=== PATIENT | male | born 1985 | race African-American/Black ===

== ENCOUNTER 2020-07-22 18:49 | Inpatient (IN) | payer SELFPAY ==
[~2020-07-22] VITALS: Ht 170.1 cm; Wt 70.0 kg
[2020-07-22 19:00] VITALS: BP 121/72
[2020-07-22 20:00] VITALS: BP 112/51
[2020-07-22 20:04] LABS: BASO % 0.5 % (0.0-1.0); EOS # 0.3 10*3/uL (0.0-0.4); EOS % 4.6 % (1.0-4.0); HEMATOCRIT 43.4 % (42.0-52.0); LYMPH # 2.3 10*3/uL (1.3-4.4); LYMPH % 37.9 % (27.0-41.0); MEAN CELL VOLUME 86.5 fl (80.0-94.0); MEAN CORPUSCULAR HGB 27.9 pg (27.0-31.0); MEAN CORPUSCULAR HGB CONC 32.3 g/dl (33.0-37.0); MEAN PLATELET VOLUME 10.7 fl (9.6-12.3); MONO # 0.5 10*3/uL (0.1-1.0); NEUT % 48.8 % (47.0-73.0); PLATELET COUNT AUTOMATED 189 10*3/uL (130-400); RED BLOOD COUNT 5.02 10*6/uL (4.50-5.90); RED CELL DISTRI WIDTH 12.8 % (0-14.5); WHITE BLOOD COUNT 6.2 10*3/uL (4.8-10.8)
[2020-07-22 20:19] LABS: ALBUMIN 3.6 gm/dl (3.1-4.5); ALKALINE PHOSPHATASE 85 U/L (45-117); BUN 20 mg/dl (7-24); CHLORIDE 105 mmol/L (98-107); POTASSIUM 3.9 mmol/L (3.5-5.1); SGOT/AST 18 IU/L (3-35); SGPT/ALT 29 U/L (12-78); SODIUM 139 mmol/L (136-145); TOTAL PROTEIN 7.3 gm/dL (6.4-8.2)
[2020-07-22 20:48] LABS: ETHYL ALCOHOL < 3.0 mg/dl (<3)
[2020-07-23] VITALS: BP 136/72
[2020-07-23 05:35] LABS: BILIRUBIN Negative (Negative); BLOOD Negative (Negative); CLARITY Clear (Clear); COLOR Yellow (Yellow); GLUCOSE Negative (Negative); KETONE Negative (Negative); LEUKO ESTERASE Negative (Negative); NITRITE Negative (Negative); PH 7.5 (4.5-8.0); SPECIFIC GRAVITY 1.025 (1.001-1.030)
[2020-07-23 05:43] LABS: URINE AMPHETAMINES < 1000 (1000ng/ml); URINE BARBITURATES < 200 (200ng/ml); URINE BENZODIAZEPINES > 200 (200ng/ml); URINE CANNABINOIDS (THC) < 50 (50ng/ml); URINE COCAINE > 300 (300ng/ml); URINE METHADONE < 300 (300ng/ml); URINE OPIATES < 300 (300ng/ml); URINE PHENCYCLIDINE < 25 (25ng/ml)
[2020-07-23 05:52] LABS: RBC 0-2 rbc/hpf (0-2)
[2020-07-23 08:00] VITALS: BP 115/72
[2020-07-23 12:00] VITALS: BP 114/63
[2020-07-23 16:00] VITALS: BP 138/98
[2020-07-23 20:00] VITALS: BP 115/70
[2020-07-24] VITALS: BP 112/68
[2020-07-24 06:07] LABS: HEP B CORE AB, IGM Negative (Negative); HEPATITIS B SURFACE AG Negative (Negative)
[2020-07-24 08:00] VITALS: BP 126/87
[2020-07-24 12:00] VITALS: BP 134/80
[2020-07-24 16:00] VITALS: BP 118/75
[2020-07-24 20:00] VITALS: BP 104/74
[2020-07-25 00:09] VITALS: BP 106/79
[2020-07-25 08:15] VITALS: BP 116/75
[2020-07-25 12:29] VITALS: BP 106/56
[2020-07-25 16:06] VITALS: BP 137/74
[2020-07-25 20:00] VITALS: BP 116/73
[2020-07-26] VITALS: BP 110/54
[2020-07-26 08:00] VITALS: BP 102/66
[2020-07-26 08:05] LABS: HEPATITIS C VIRUS ANTIBODY >11.0 s/co (0.0-0.9)
[2020-07-26] MEDS ORDERED: CHLORDIAZEPOXID25 M1 PO (09:27)
[2020-07-26] MEDS ORDERED: ATARAX,VISTARIL50 MG PO (09:27)
== END 2020-07-26 10:48 | DRG 897 ==
LOC: 5E 18:49
PROVIDERS: Internal Medicine; ADMIT Family Medicine; ATTEND Family Medicine
DX: F11.13 Opioid abuse with withdrawal (principal); F32.9 Major depressive disorder, single episode, unspecified; F13.139 Sedative, hypnotic or anxiolytic abuse with withdrawal, unspecified; F17.210 Nicotine dependence, cigarettes, uncomplicated; R76.8 Other specified abnormal immunological findings in serum; I10 Essential (primary) hypertension; R73.9 Hyperglycemia, unspecified; F41.9 Anxiety disorder, unspecified; Z71.6 Tobacco abuse counseling